=== PATIENT | male | born 1980 | race Caucasian/White ===

== ENCOUNTER 2019-11-23 17:49 | Emergency (ER) | payer BC ==
[2019-11-23] MEDS ORDERED: Sodium Chloride 0.9% 1,000 ML IV SCH (18:15)
--- NOTE | 2019-11-23 18:19 | EDM.PDOC ---
ED HPI GENERAL MEDICAL PROBLEM - General Chief Complaint: Neurological Problem Stated Complaint: SEIZURE Time Seen by Provider: 11/23/19 17:50 Source of Information: Reports: Patient, Police History Limitations: Reports: No Limitations - History of Present Illness INITIAL COMMENTS - FREE TEXT/NARRATIVE: was arrested for failure to appear in court and as he got to care home , was left briefly and officiers came back to note he seemed to be shaking ?? seizure so was brought in as he arrived the hospital in the garage , seemed to have another episode; jerking all over, no incontinence , no eye rolling : no post ictal period , continuous shaking : d as alert and stated he felt very hot, could not breath, needed handcuffs off took coat off , gradually got better , tremors reduced and stopped Onset: Today Onset Date: 11/23/19 Duration: Getting Worse Location: Reports: Generalized Quality: Reports: Dull Severity: Moderate Associated Symptoms: Reports: Shortness of Breath, Syncope, Weakness, Other ( feeling very ot , " burning ') Abdominal Pain Score (Numeric/FACES): 3 - Related Data Allergies Allergy/AdvReac Type Severity Reaction Status Date / Time No Known Allergies Allergy Verified 11/23/19 18:24 Home Meds: Home Meds NK [No Known Home Meds] 11/23/19 [History] ED ROS GENERAL - Review of Systems Review Of Systems: See Below Constitutional: Reports: Weakness, Fatigue HEENT: Reports: No Symptoms Respiratory: Reports: No Symptoms Cardiovascular: Reports: No Symptoms Endocrine: Reports: No Symptoms GI/Abdominal: Reports: No Symptoms Musculoskeletal: Reports: No Symptoms Skin: Reports: No Symptoms Neurological: Reports: Dizziness, Headache, Paresthesia, Tremors, Trouble Speaking, Difficulty Walking Psychiatric: Reports: No Symptoms Hematologic/Lymphatic: Reports: No Symptoms Immunologic: Reports: No Symptoms - Physical Exam Exam: See Below Text/Narrative:: seemed agitated Exam Limited By: No Limitations General Appearance: Alert, WD/WN, No Apparent Distress Eye Exam: Bilateral Eye: EOMI Ears: Normal External Exam, Normal Canal Nose: Nasal Deformity Throat/Mouth: Normal Teeth, Normal Gums, Normal Oropharynx, No Airway Compromise. No: Evidence of Tongue Biting Head Exam: Atraumatic, Normocephalic Neck: Normal Inspection, Supple, Non-Tender, Full Range of Motion Respiratory/Chest: Lungs Clear, Normal Breath Sounds Cardiovascular: Regular Rate, Rhythm, No Murmur, Tachycardia GI/Abdominal: Soft, Non-Tender Neuro Exam (Abbreviated): Alert, Oriented, Normal Reflexes, No Motor/Sensory Deficits Back Exam: Full Range of Motion Extremities: Normal Range of Motion Psychiatric: Anxious, Flat Affect Skin Exam: Warm Course - Vital Signs Last Recorded V/S: Last Vital Signs Temp 36.6 C 11/23/19 19:45 Pulse 67 11/23/19 19:45 Resp 18 11/23/19 19:45 BP 120/65 11/23/19 19:45 Pulse Ox 98 11/23/19 19:45 - Orders/Labs/Meds Orders: Active Orders 24 hr Category Date Time Status EKG Documentation Completion [RC] ASDIRECTED Care 11/23/19 18:10 Active Head wo Cont [CT] Stat Exams 11/23/19 18:10 Taken Sodium Chloride 0.9% [Normal Saline] 1,000 ml Med 11/23/19 18:15 Active IV ASDIRECTED EKG 12 Lead [EK] Routine Ther 11/23/19 18:10 Ordered Medication Orders Sodium Chloride (Normal Saline) 1,000 mls @ 999 mls/hr IV ASDIRECTED RICARDO Last Admin: 11/23/19 18:00 Dose: 999 mls/hr Labs: Laboratory Tests 11/23/19 11/23/19 11/23/19 Range/Units 18:35 18:35 18:35 WBC 11.6 (4.5-12.0) X10-3/uL RBC 4.39 (4.30-5.75) x10(6)uL Hgb 13.9 (13.5-17.8) g/dL Hct 41.0 (30.0-51.3) % MCV 93.5 (80-96) fL MCH 31.7 (27.7-33.6) pg MCHC 33.9 (32.2-35.4) g/dL RDW 13.5 (11.5-15.5) % Plt Count 205 (125-369) X10(3)uL MPV 8.5 (7.4-10.4) fL Add Manual Diff Yes Neutrophils % (Manual) 58 (46-82) % Band Neutrophils % 4 (0-6) % Lymphocytes % (Manual) 31 (13-37) % Monocytes % (Manual) 5 (4-12) % Eosinophils % (Manual) 2 (0-5) % Sodium 142 (135-145) mmol/L Potassium 3.9 (3.5-5.3) mmol/L Chloride 107 (100-110) mmol/L Carbon Dioxide 25 (21-32) mmol/L BUN 13 (7-18) mg/dL Creatinine 1.2 (0.70-1.30) mg/dL Est Cr Clr Drug Dosing 89.81 mL/min Estimated GFR (MDRD) > 60 (>60) BUN/Creatinine Ratio 10.8 (9-20) Glucose 116 (80-116) mg/dL Calcium 8.2 L (8.6-10.2) mg/dL Total Bilirubin 0.3 (0.1-1.3) mg/dL AST 20 (5-25) IU/L ALT 30 (12-36) U/L Alkaline Phosphatase 62 (56-112) IU/L Total Protein 7.0 (6.0-8.0) g/dL Albumin 3.6 (3.5-5.2) g/dL Globulin 3.4 g/dL Albumin/Globulin Ratio 1.1 Salicylates (<2.8) mg/dL Urine Opiates Screen (NEGATIVE) Ur Oxycodone Screen (NEGATIVE) Ur Propoxyphene Screen (NEGATIVE) Acetaminophen (<2) ug/mL Ur Barbituates Screen (NEGATIVE) Ur Tricyclics Screen (NEGATIVE) Ur Phencyclidine Scrn (NEGATIVE) Ur Amphetamine Screen (NEGATIVE) Urine MDMA Screen (NEGATIVE) U Benzodiazepines Scrn (NEGATIVE) U Cocaine Metab Screen (NEGATIVE) U Marijuana (THC) Screen (NEGATIVE) Ethyl Alcohol < 0.03 (<0.03) % 11/23/19 11/23/19 11/23/19 Range/Units 18:35 18:35 19:15 WBC (4.5-12.0) X10-3/uL RBC (4.30-5.75) x10(6)uL Hgb (13.5-17.8) g/dL Hct (30.0-51.3) % MCV (80-96) fL MCH (27.7-33.6) pg MCHC (32.2-35.4) g/dL RDW (11.5-15.5) % Plt Count (125-369) X10(3)uL MPV (7.4-10.4) fL Add Manual Diff Neutrophils % (Manual) (46-82) % Band Neutrophils % (0-6) % Lymphocytes % (Manual) (13-37) % Monocytes % (Manual) (4-12) % Eosinophils % (Manual) (0-5) % Sodium (135-145) mmol/L Potassium (3.5-5.3) mmol/L Chloride (100-110) mmol/L Carbon Dioxide (21-32) mmol/L BUN (7-18) mg/dL Creatinine (0.70-1.30) mg/dL Est Cr Clr Drug Dosing mL/min Estimated GFR (MDRD) (>60) BUN/Creatinine Ratio (9-20) Glucose (80-116) mg/dL Calcium (8.6-10.2) mg/dL Total Bilirubin (0.1-1.3) mg/dL AST (5-25) IU/L ALT (12-36) U/L Alkaline Phosphatase (56-112) IU/L Total Protein (6.0-8.0) g/dL Albumin (3.5-5.2) g/dL Globulin g/dL Albumin/Globulin Ratio Salicylates 1.4 L (<2.8) mg/dL Urine Opiates Screen Negative (NEGATIVE) Ur Oxycodone Screen Negative (NEGATIVE) Ur Propoxyphene Screen Negative (NEGATIVE) Acetaminophen < 2 L (<2) ug/mL Ur Barbituates Screen Negative (NEGATIVE) Ur Tricyclics Screen Negative (NEGATIVE) Ur Phencyclidine Scrn Negative (NEGATIVE) Ur Amphetamine Screen Negative (NEGATIVE) Urine MDMA Screen Negative (NEGATIVE) U Benzodiazepines Scrn Negative (NEGATIVE) U Cocaine Metab Screen Negative (NEGATIVE) U Marijuana (THC) Screen Positive H (NEGATIVE) Ethyl Alcohol (<0.03) % Meds: Medications Generic Name Dose Route Start Last Admin Trade Name Freq PRN Reason Stop Dose Admin Sodium Chloride 1,000 mls @ 999 mls/hr 11/23/19 18:15 11/23/19 18:00 Normal Saline IV 999 mls/hr ASDIRECTED RICARDO Administration - Re-Assessments/Exams Free Text/Narrative Re-Assessment/Exam: 11/23/19 18:19 on re-assessment pt now had hand cuffs off , coat of f states he his feeling better thinks he did not have a seizure , may have been overheated , now breathing better , not hyper ventilating police changed charge on him and asked him to come to court in december now he states he is feeling much better wants to drink water ready to go home i did order labs and "EKG done to make sure he was doing well 11/23/19 20:06 Departure - Departure Time of Disposition: 20:10 Disposition: Home, Self-Care 01 Condition: Fair Clinical Impression: Pseudoseizure, Heat collapse - Discharge Information *PRESCRIPTION DRUG MONITORING PROGRAM REVIEWED*: Not Applicable *COPY OF PRESCRIPTION DRUG MONITORING REPORT IN PATIENT MUSHT[facility]: Not Applicable Forms: ED Department Discharge Additional Instructions: Make appt to see a primary care provider for further evaluation Sepsis Event Note - Focused Exam Vital Signs: Vital Signs Temp Temp Pulse Pulse Resp BP Pulse Ox 11/23/19 19:45 36.6 C 67 18 120/65 98 11/23/19 17:50 35.8 C L 75 30 H 175/90 H 100 Date Exam was Performed: 11/23/19 Time Exam was Performed: 20:00 - My Orders Last 24 Hours: My Active Orders 11/23/19 18:10 EKG Documentation Completion [RC] ASDIRECTED Head wo Cont [CT] Stat EKG 12 Lead [EK] Routine 11/23/19 18:15 Sodium Chloride 0.9% [Normal Saline] 1,000 ml IV ASDIRECTED - Assessment/Plan Last 24 Hours: My Active Orders 11/23/19 18:10 EKG Documentation Completion [RC] ASDIRECTED Head wo Cont [CT] Stat EKG 12 Lead [EK] Routine 11/23/19 18:15 Sodium Chloride 0.9% [Normal Saline] 1,000 ml IV ASDIRECTED
--- NOTE | 2019-12-18 17:39 | CT ---
INDICATION: Question seizures, blurry vision. No headache or dizziness. [place] like he was overheating. No symptoms at this time. CT HEAD WITHOUT CONTRAST: Spiral 3.75 mm axial sections were obtained through the brain without contrast with sagittal and coronal reconstructions 12/18/2019 - no comparisons. Total exam DLP was 1270.76 mGy/cm. Marked thickening of the linings of the maxillary antra is noted. Thickening of the linings of multiple ethmoidal air cells is also seen. Thickening of the lining of the right frontal air cell is noted and also to a lesser extent at the base of the left frontal air cell. The sphenoidal air cells do not appear to be affected. Mastoid air cells were well aerated. No definite cranial abnormality was seen. No shift of midline structures, ventricular abnormalities or abnormal areas of density were identified. The orbits appear to be intact. IMPRESSION: 1. No acute intracranial abnormality - normal CT of the brain without contrast. 2. Sinusitis is suggested in all but the sphenoidal air cells. MTDD
== END 2019-11-23 20:15 | disposition home or self-care (01) ==
LOC: FB.ED 17:49 → EDBD 17:49 → FB.ED 20:15
DX: T67.1XXA Heat syncope, initial encounter (principal); F44.5 Conversion disorder with seizures or convulsions
CPT/HCPCS: 36415; 70450; 80053; 80305; 80307; 85025; 93005; 99285; J7030